=== PATIENT | female | born 1950 | race Caucasian/White ===

== ENCOUNTER 2020-01-28 09:21 | Emergency (ER) | payer MEDICARE, OTHER, SELFPAY ==
[2020-01-28] VITALS (28 sets, daily range): BP systolic 98–155; BP diastolic 71–97; PULSE 63–86; RESP 10–24; TEMP 36.6; O2SAT 93–97
--- NOTE | 2020-01-28 09:15 | RT.EKG_ITS ---
APPROVED REPORT Exam: Resting ECG Patient Location: E HR:72 bpm ECG Measurements Heart Rate 72 AXIS TX 190 P -10 QRSd 87 QRS 33 QT 397 T 26 QTc 435 Conclusion Sinus rhythm...normal P axis, V-rate 60- 99
--- NOTE | 2020-01-28 09:30 | DI.CT_ITS ---
EXAM: CT BRAIN NECK CTA CLINICAL HISTORY: rt facial weakness, posterior rt occipital LEHMAN. TECHNIQUE: Imaging Protocol: Axial CT angiography was performed with multi-slice acquisition and mu lti-planar and/or 3D reconstructions. CONTRAST MATERIAL: Intravenous: Omnipaque 350 Contrast volume:85 cc COMPARISON: No exams were available for comparison FINDINGS: CT Head W/O: Ventricles and Extra axial spaces: Normal in size and morphology for the patient's age. Hemorrhage: None. Cerebral parenchyma: Old right lacunar infarct versus prominent perivascular space. Mild atrophy. Midline shift: None. Brainstem/Cerebellum: Normal. Calvarium: Normal. Visualized Paranasal sinuses/Mastoids: Clear. Soft Tissues: Unremarkable. CTA Brain W: Internal Carotid Arteries: Petrous: Normal. Cavernous: Normal. Cerebral: Normal. Middle Cerebral Arteries: Right: No aneurysm, occlusion or significant stenosis. Left: No aneurysm, occlusion or significant stenosis. Anterior Cerebral Arteries: Right: No aneurysm, occlusion or significant stenosis. Left: No aneurysm, occlusion or significant stenosis. Posterior cerebral Arteries: Right: No aneurysm, occlusion or significant stenosis. Left: No aneurysm, occlusion or significant stenosis. Vertebral Arteries: Right: No aneurysm, occlusion or significant stenosis. Left: No aneurysm, occlusion or significant stenosis. Basilar Artery: No aneurysm, occlusion or significant stenosis. CTA Neck: The vessels are ectatic. There is no evidence of significant stenosis or dissection. Dege nerative changes are noted in the cervical spine. The visualized portions of the upper lobes appear clear. The sinuses and orbits are unremarkable. IMPRESSION: 1. Normal CTA examination of the [place]. 2. Old right lacunar infarct versus prominent perivascular space. RADIATION DOSE DELIVERED: Total DLP DATA REPOSITORY: All CT scans at this facility are submitted to the National Radiology Data Registry (NRDR) Dose Index Registry (DIR) with the [employer] (ACR). RADIATION OPTIMIZATION: All CT scans at this facility use at least one of these dose optimization te chniques: automated exposure control; mA and/or kV adjustment per patient size (includes targeted exa ms where dose is matched to clinical indication); or iterative reconstruction.
--- NOTE | 2020-01-28 09:30 | DI.RAD_ITS ---
EXAM: XR CHEST 2V PA LATERAL CLINICAL HISTORY: rt facial weakness, concern for cva TECHNIQUE: 2D digital imaging was performed. COMPARISON: No exams were available for comparison FINDINGS: The heart size is within normal limits. The aorta is tortuous. There are mildly increased interstit ial markings which could indicate fibrotic changes versus early pulmonary edema. There is no evidenc e of mass or consolidation. There is no pneumothorax. The spine appears intact. IMPRESSION: Mild CHF versus mild fibrotic changes. DATA REPOSITORY: RADIATION DOSE DELIVERED:
--- NOTE | 2020-01-28 09:38 | ED.GENADUL_ITS ---
Discharge Plan Disposition Patient Disposition: [facility] Condition: Serious Discharge Details Clinical Impression: Weakness on right side of face, Abnormality of soft tissue on examination Primary Care Provider: Gemma Herrera ED Provider: Emery Juarez Home Meds and New Rx's Prescriptions: No Action levothyroxine 175 mcg Tablet 175 mcg PO DAILY RF: 0 paroxetine HCl 30 mg Tablet 30 mg PO DAILY RF: 0 hydrochlorothiazide 25 mg Tablet 25 mg PO DAILY RF: 0 propranolol 20 mg Tablet 20 mg PO BID RF: 0 Centrum Women 18-400 mg-mcg Tablet 1 tab PO DAILY RF: 0 [place] RF: 0 Discharge Instructions Additional Instructions: CT imaging of your neck revealed mildly asymmetric parapharyngeal soft tissue calcifications and soft tissue thickening at the left parapharyngeal and tonsillar level. It is recommended that nonemergent evaluation of this soft tissue abnormality be performed by an hearing aid assistant. Please call ENT to arrange timely follow-up. Discharge Data Discharge Date/Time-TO BE ENTERED AT DEPARTURE: 01/28/20 12:41 Medical Decision Making 948??70-year-old female with history of hypertension, here with right-sided facial droop that was noticed upon waking this morning. Last known time without weakness was yesterday 10 PM. Patient did have right occipital headache last night. Headache now resolved. Patient does have significant right-sided facial weakness on exam. She does serial elevate her right eyebrow and forehead slightly. No other focal neurologic findings on exam. Concern for Dunn's palsy versus CVA. Plan to obtain CT of the head and CTA of the brain and neck. Screening ECG was reviewed and interpreted by me: Sinus rhythm 72 bpm, normal axis, nondiagnostic. See report. Will send tick panel. 1038??CT of the head was interpreted by radiology: No acute intracranial abnormality. CTA of the head interpreted by radiology: No large vessel occlusion. CTA of the neck interpreted by radiology: No significant carotid stenosis by NASCET [place] criteria. Ectatic arterial vasculature in the neck without significant james nosis, thrombus or dissection. Vertebral arteries are codominant. Mildly asymmetric parapharyngeal soft tissue calcifications and soft tissue thickening at the left parapharyngeal and tonsillar level should be non-emergently evaluated with direct visualization. We do not have MRI capability at [facility] today or tomorrow. Call to [facility] transfer center to request consultation with neurology. Patient will need nonemergent ENT follow-up direct visualization of incidental finding noted on CT. Chest x-ray was reviewed and interpreted by radiology: Mild pulmonary venous hyp ertension cannot exclude early failure. Patient has no signs of heart failure on exam including no JVD and no lower extremity edema. Troponin is negative. 1115 --I spoke with Dr. Simon, on-call neurology at [facility], discussed ED presentation and course. He feels this is likely Dunn's palsy but does recommend timely MRI. He recommends transferring the patient to be accepted in the [facility] emergency department for evaluation and MRI. Transfer center notes no bed availability in the emergency department. [facility] is not currently on EMS diversion per transfer center. I explained that patient could have an emergent medical condition that we do not have the ability to rule out. This is understood and unfortunately they will not accept the patient in transfer. Plan will be to transfer to another MRI capable center for neurologic evaluation and further assessment of potential emergent medical condition. Call to [facility] transfer center. 11:28 -- I spoke with [facility], Dr. Esteban (neuro) and Dr. Martini (EM) discussed ED presentation and course--Dr. Martini will accept the patient in transfer. Lab Data Lab results reviewed: Yes I reviewed the patient's lab results. Labs: Laboratory Tests Range/Units 01/28/20 01/28/20 01/28/20 09:40 09:40 09:40 WBC (4.4-10.8) 10^3/uL 6.30 RBC (3.93-5.22) 10^6/uL 5.34 H Hgb (11.2-15.7) g/dL 16.0 H Hct (36.0-46.0) % 47.3 H MCV (80-95) fL 88.6 MCH (27.0-33.0) pg 30.0 MCHC (32.0-36.0) % 33.8 RDW (11.7-14.6) % 11.7 Plt Count (130-400) 10^3/uL 280 MPV (8.0-11.0) fL 10.5 Immature Gran % 0.3 Neutrophils % 63.9 Lymphocytes % 24.3 Monocytes % 7.5 Eosinophils % 2.4 Basophils % 1.6 Nucleated RBC % % 0 Absolute Neutrophils (1.2-6.7) 10^3/uL 4.03 Absolute Lymphocytes (1.2-3.4) 10^3/uL 1.53 Absolute Monocytes (0.1-0.8) 10^3/uL 0.47 Absolute Eosinophils (0.0-0.7) 10^3/uL 0.15 Absolute Basophils (0.0-0.2) 10^3/uL 0.10 PT (9.3-11.0) sec 10.1 INR (0.9-1.1) 1.0 Sodium (136-145) mmol/L 142 Potassium (3.5-5.1) mmol/L 3.5 Chloride (98-107) mmol/L 104 Carbon Dioxide (21.0-32.0) mmol/L 31.2 Anion Gap (3-11) mmol/L 6.8 BUN (7-18) mg/dL 13 Creatinine (0.55-1.02) mg/dL 0.84 Estimated GFR/1.73 m2 (mL/min/1.73m2) >= 60.00 Glucose (74-106) mg/dL 112 H Calcium (8.5-10.1) mg/dL 9.5 Total Bilirubin (0.2-1.0) mg/dL 0.6 AST (15-37) U/L 23 ALT (14-59) U/L 32 Alkaline Phosphatase (46-116) U/L 88 Troponin I (<0.06) ng/mL < 0.05 Total Protein (6.4-8.2) g/dL 8.0 Albumin (3.4-5.0) g/dL 3.9 TSH (0.36-3.74) uIU/mL Range/Units 01/28/20 09:40 WBC (4.4-10.8) 10^3/uL RBC (3.93-5.22) 10^6/uL Hgb (11.2-15.7) g/dL Hct (36.0-46.0) % MCV (80-95) fL MCH (27.0-33.0) pg MCHC (32.0-36.0) % RDW (11.7-14.6) % Plt Count (130-400) 10^3/uL MPV (8.0-11.0) fL Immature Gran % Neutrophils % Lymphocytes % Monocytes % Eosinophils % Basophils % Nucleated RBC % % Absolute Neutrophils (1.2-6.7) 10^3/uL Absolute Lymphocytes (1.2-3.4) 10^3/uL Absolute Monocytes (0.1-0.8) 10^3/uL Absolute Eosinophils (0.0-0.7) 10^3/uL Absolute Basophils (0.0-0.2) 10^3/uL PT (9.3-11.0) sec INR (0.9-1.1) Sodium (136-145) mmol/L Potassium (3.5-5.1) mmol/L Chloride (98-107) mmol/L Carbon Dioxide (21.0-32.0) mmol/L Anion Gap (3-11) mmol/L BUN (7-18) mg/dL Creatinine (0.55-1.02) mg/dL Estimated GFR/1.73 m2 (mL/min/1.73m2) Glucose (74-106) mg/dL Calcium (8.5-10.1) mg/dL Total Bilirubin (0.2-1.0) mg/dL AST (15-37) U/L ALT (14-59) U/L Alkaline Phosphatase (46-116) U/L Troponin I (<0.06) ng/mL Total Protein (6.4-8.2) g/dL Albumin (3.4-5.0) g/dL TSH (0.36-3.74) uIU/mL 1.98 HPI General Mode of arrival: ambulatory . Date/Time Provider Initiated Documentation: 01/28/20 09:33 . Limitations to Documentation: no limitations . Information obtained by: patient . HPI Narrative: 70-year-old female presents with chief complaint of facial weakness. Patient notes right-sided facial droop and weakness when she was drinking some water this morning upon waking around 830. Patient notes she had no facial weakness last night when she went to bed around 10. Patient did have a moderate to severe right-sided occipital headache last night. She notes this headache has resolved. No ear pain. No numbness or weakness. No visual changes. No fevers. No neck stiffness. Related Data Home Medications Medication Instructions Recorded Confirmed Socrates 09/06/20 hydrochlorothiazide 25 mg PO DAILY 01/28/20 01/28/20 levothyroxine 175 mcg PO DAILY 01/28/20 01/28/20 wekbhsisaixa-[id number]-buvvn acid 1 tab PO DAILY 01/28/20 01/28/20 [Centrum Women] paroxetine HCl 30 mg PO DAILY 01/28/20 01/28/20 propranolol 20 mg PO BID 01/28/20 01/28/20 Allergies Allergy/AdvReac Type Severity Reaction Status Date / Time No Known Allergies Allergy Unverified 01/28/20 09:35 General Stated Complaint: CVA/TIA ENE: 2 Review of Systems All systems reviewed & are unremarkable except as noted in HPI and below Constitutional Constitutional: Denies fever(s) Respiratory Respiratory: Denies as per HPI Neurologic Neurologic: Reports as per HPI [facility] Medical History (Updated 01/28/20 @ 10:44 by Emery Juarez MD) Hypertension Hypothyroid Social History Smoking/Tobacco Use Status: Never Alcohol Intake: current Alcohol Intake frequency: holidays/special occasions only Substance use type: does not use Do you feel safe at home: Yes Do you feel safe in your relationship?: Yes Exam Const General: cooperative and no acute distress HENMT Head: normocephalic and atraumatic Ears: TM normal on the right and TM normal on the left Mouth: moist mucous membranes Eyes Conjunctivae: normal conjunctivae Sclera: normal sclerae Neck Neck: trachea midline and supple Resp Auscultation: clear to auscultation bilaterally, no rales, no rhonchi and no wheezes Cardio Jugular venous pressure: no JVD Rate: regular rate and not tachycardic Rhythm: regular rhythm GI Palpation: soft, not firm, no guarding, no masses, not rigid and nontender Skin General skin exam: no rashes or lesions noted Neuro General: patient alert, patient awake, patient oriented x3 and tone normal Cranial Nerves: sense of smell intact, PERRL, accommodation normal, EOM intact bilaterally, no nystagmus and other (Right facial droop, is able to wrinkle forehead/raise eyebrows slightly on ) Cognition: normal cognition Speech: speech normal Motor: muscle tone normal throughout and strength 5/5 throughout Sensory Exam: no sensory deficits noted Extrem General: no edema Psych Appearance: grossly normal Mental Status: mental status grossly normal Speech and Movement: speech and movement normal Course Vital Signs Vital signs: Vital Signs Temperature 36.6 C 01/28/20 09:30 Pulse 86 01/28/20 09:30 Respiratory Rate 18 01/28/20 09:30 Blood Pressure 155/97 H 01/28/20 09:30 Pulse Oximetry 95 01/28/20 09:30 Temperature 36.6 C 01/28/20 09:30 Temperature Source Skin 01/28/20 09:30 Pulse 86 01/28/20 09:30 Respiratory Rate 18 01/28/20 09:30 Respiratory Effort 01/28/20 09:36 Blood Pressure 155/97 H 01/28/20 09:30 Blood Pressure Position Supine 01/28/20 09:30 Pulse Oximetry 95 01/28/20 09:30 Oxygen Delivery Method Room Air 01/28/20 09:30 Oxygen Flow Rate 0 01/28/20 09:30 Pain Level 0 01/28/20 09:30
[2020-01-28 09:46] LABS: Abs Immature Grans 0.02 10^3/uL (0.0-0.06); Absolute Eosinophil Count 0.15 10^3/uL (0.0-0.7); Absolute Lymphocyte Count 1.53 10^3/uL (1.2-3.4); Absolute Monocyte Count 0.47 10^3/uL (0.1-0.8); Absolute Neutrophil Count 4.03 10^3/uL (1.2-6.7); Basophils % 1.6; Eosinophils % 2.4; HCT 47.3 % (36.0-46.0); Immature Grans % 0.3; Lymphocytes % 24.3; MCHC 33.8 % (32.0-36.0); MCV 88.6 fL (80-95); MPV 10.5 fL (8.0-11.0); Monocytes % 7.5; Neutrophils % 63.9; Nucleated RBC 0 %; Platelet Count 280 10^3/uL (130-400); RBC 5.34 10^6/uL (3.93-5.22); RDW 11.7 % (11.7-14.6); RDW-SD 37.3 fL
[2020-01-28] MEDS: Normal Saline Flush 10 ML SYR IVP (09:46)
[2020-01-28] MEDS: Omnipaque 350 MG/ML 100 ML BTL 85 ML IJ (09:48)
[2020-01-28 09:56] LABS: Prothrombin Time 10.1 sec (9.3-11.0)
[2020-01-28 10:04] LABS: ALT 32 U/L (14-59); AST 23 U/L (15-37); Albumin 3.9 g/dL (3.4-5.0); Alkaline Phosphatase 88 U/L (46-116); Anion Gap 6.8 mmol/L (3-11); BUN 13 mg/dL (7-18); Bilirubin, Total 0.6 mg/dL (0.2-1.0); CO2 31.2 mmol/L (21.0-32.0); CREATININE 0.84 mg/dL (0.55-1.02); Calcium 9.5 mg/dL (8.5-10.1); Chloride 104 mmol/L (98-107); Glucose 112 mg/dL (74-106); Potassium 3.5 mmol/L (3.5-5.1); Sodium 142 mmol/L (136-145); Troponin I < 0.05 ng/mL (<0.06)
--- NOTE | 2020-01-28 10:07 | DI.VRAD_ITS ---
PROCEDURE INFORMATION: Exam: XR Chest, 2 Views Exam date and time: 01/28/2020 9:56 AM Age: 70 years old Clinical indication: Other: RT facial weakness, concern for CVA; Additional info: RT faciasl weakness, posterior RT occipital LEHMAN TECHNIQUE: Imaging protocol: XR of the chest Views: 2 views. COMPARISON: No relevant prior studies available. FINDINGS: Lungs: The lungs are well expanded and clear. Mild pulmonary venous hypertension. Pleural space: Unremarkable. No pleural effusion. No pneumothorax. Heart/Mediastinum: Heart Size upper limits of normal . Vasculature: tortuous aorta. Bones/joints: Unremarkable. IMPRESSION: Mild pulmonary venous hypertension cannot exclude early failure. Dictated and Authenticated by: Kellie Macario MD. Ordering:JAMES Land MD
[2020-01-28 10:09] LABS: TSH (W/Ref FT4) 1.98 uIU/mL (0.36-3.74)
--- NOTE | 2020-01-28 10:25 | DI.VRAD_ITS ---
PROCEDURE INFORMATION: Exam: CT Angiography Head With Contrast Exam date and time: 01/28/2020 9:37 AM Age: 70 years old Clinical indication: Other: RT faciasl weakness, posterior RT occipital LEHMAN TECHNIQUE: Imaging protocol: Computed tomography angiography of the head with intravenous contrast. COMPARISON: No relevant prior studies available. FINDINGS: Arteries: Ectasia of the arterial tree the qoziai-md-Kmiqal without high-grade stenosis, thrombus, or aneurysm. Veins: Venous contamination without venous thrombus. Mastoid air cells: The mastoids are well aerated. Orbits: The orbits look intact. Bones/joints: Hyperostosis of the calvarium without acute fracture. Lymph nodes: No visualized lymphadenopathy. Soft tissues: The paranasal sinuses are well aerated. IMPRESSION: No large vessel occlusion. PROCEDURE INFORMATION: Exam: CT Head Without Contrast Exam date and time: 01/28/2020 9:37 AM Age: 70 years old Clinical indication: Other: RT faciasl weakness, posterior RT occipital LEHMAN TECHNIQUE: Imaging protocol: Computed tomography of the head without contrast. Radiation optimization: All CT scans at this facility use at least one of these dose optimization techniques: automated exposure control; mA and/or kV adjustment per patient size (includes targeted exams where dose is matched to clinical indication); or iterative reconstruction. Other technique: STROKE PROTOCOL was implemented. COMPARISON: No relevant prior studies available. FINDINGS: Brain: No acute hemorrhage or acute territorial infarct. Moderate diffuse involutional changes in the brain. Vascular calcifications are approaching the [id number]-hr-Bjhcvf. Old lacune versus dilated perivascular space on right. Ventricles: Normal. No ventriculomegaly. Bones/joints: Mild hyperostosis of the calvarium without acute fracture. Sinuses: Visualized sinuses are unremarkable. No fluid levels. Mastoid air cells: Visualized mastoid air cells are well aerated. Soft tissues: Unremarkable. IMPRESSION: No acute intracranial abnormality ASSESSMENT: ASPECTS (Tanisha Stroke Program Early CT Score) is 10. PROCEDURE INFORMATION: Exam: CT Angiography Neck With Contrast Exam date and time: 01/28/2020 9:37 AM Age: 70 years old Clinical indication: Other: RT faciasl weakness, posterior RT occipital LEHMAN TECHNIQUE: Imaging protocol: Computed tomography angiography of the neck with intravenous contrast. 3D rendering (Not supervised by radiologist): MIP and/or 3D reconstructed images were created by the technologist. Radiation optimization: All CT scans at this facility use at least one of these dose optimization techniques: automated exposure control; mA and/or kV adjustment per patient size (includes targeted exams where dose is matched to clinical indication); or iterative reconstruction. Contrast material: OMNIPAQUE 350; Contrast volume: 85 ml; Contrast route: INTRAVENOUS (IV); COMPARISON: No relevant prior studies available. FINDINGS: Arteries: Ectatic arterial vasculature in the neck without significant stenosis, thrombus, or dissection. The vertebral arteries are codominant. Oropharynx: Mildly asymmetric parapharyngeal soft tissue calcifications and soft tissue thickening at the left parapharyngeal and tonsillar level should be non emergently evaluated with direct visualization. Thyroid: Thyroid is diminutive. Dental: There are carious teeth in the field of view. Bones/joints: Degenerative changes along the spine with reversal of the lordosis. The apex is at C5-C6. Soft tissues: No dominant neck mass. Lymph nodes: Small neck nodes without confluent lymphadenopathy. Lungs: Heterogeneous aeration of the included lungs. Esophagus: Mildly patulous esophagus. IMPRESSION: 1. No significant carotid stenosis by NASCET criteria. 2. Other findings as above. REFERENCES: NASCET CRITERIA. The degree of internal carotid artery stenosis is based on NASCET criteria. Normal is no stenosis. Mild is less than 50% stenosis. Moderate is 50-69% stenosis. Severe is 70% to 99% stenosis. Total occlusion is no detectable patent lumen. Dictated and Authenticated by: Caleb Reeves MD. Ordering:JAMES Land MD
[2020-01-28] MEDS: Aspirin 325 MG TAB PO ×2 (11:00)
[2020-01-31 10:59] LABS: Lyme Ab w Rflx to Lyme Confirm Negative (Negative)
--- NOTE | 2020-01-31 16:52 | NUR.NOTE ---
Nursing Note: Patient called requesting that the visit information be faxed to her PCP, Mita Sultana. I faxed the information. Mónica Leung P [phone] F [phone]
[2020-02-01 00:57] LABS: Anaplasma phagocytophilum Negative (Negative); B. miyamotoi PCR Negative (Negative); Babesia divergens/MO-1 Negative (Negative); Babesia duncani Negative (Negative); Babesia microti Negative (Negative); Ehrlichia chaffeensis Negative (Negative); Ehrlichia ewingii/canis Negative (Negative); Ehrlichia muris eauclairensis Negative (Negative)
== END 2020-01-28 12:41 | disposition short-term general hospital (02) ==
PROVIDERS: Emergency Provider Student in an Organized Health Care Education/Training Program; PCP Legal Medicine
DX: R29.810 Facial weakness (principal); R93.89 Abnormal findings on diagnostic imaging of other specified body structures; I10 Essential (primary) hypertension
CPT/HCPCS: 36416; 70496; 70498; 80053; 82962; 87798; 93005; 99285; 71046; 84443; 84484; 85025; 85610; 86618; 93010; J3490

== ENCOUNTER 2021-04-29 18:42 | Outpatient (REF) | payer MEDICARE, SELFPAY ==
[2021-04-29 17:43] LABS: ALT 28 U/L (14-59); AST 21 U/L (15-37); Alkaline Phosphatase 91 U/L (46-116); Anion Gap 6.2 mmol/L (3-11); BUN 15 mg/dL (7-18); Bilirubin, Total 0.7 mg/dL (0.2-1.0); CO2 31.8 mmol/L (21.0-32.0); CREATININE 0.8 mg/dL (0.55-1.02); Calcium 9.5 mg/dL (8.5-10.1); Chloride 104 mmol/L (98-107); Glucose 110 mg/dL (74-106); Potassium 3.7 mmol/L (3.5-5.1); Sodium 142 mmol/L (136-145); TSH (W/Ref FT4) 0.89 uIU/mL (0.36-3.74); Total Protein 7.1 g/dL (6.4-8.2)
== END 2021-04-29 18:43 | disposition home or self-care (01) ==
LOC: LBN 18:42
DX: I10 Essential (primary) hypertension (principal); E05.90 Thyrotoxicosis, unspecified without thyrotoxic crisis or storm; Z00.00 Encounter for general adult medical examination without abnormal findings
CPT/HCPCS: 80053; 84443

== ENCOUNTER 2021-05-29 03:18 | Outpatient (CLI) | payer MEDICARE, SELFPAY ==
--- NOTE | 2021-05-29 07:15 | DI.MAMMO_ITS ---
Exam(s) MAMMO SCREENING EXAM: MAMMO SCREENING CLINICAL HISTORY: screening,Z12.39 TECHNIQUE: Bilateral full field digital CC and MLO mammographic images were obtained with 3D tomosyn thesis and utilizing computer aided detection (CAD). COMPARISON: Available for comparison. FINDINGS: Masses/Architectural Distortion: None seen. Microcalcifications: No suspicious pleomorphic-type are seen. Skin Thickening/Nipple Retraction: None. IMPRESSION: 1. No significant interval change with no specific features of malignancy noted. 2. Unless there is more urgent need, screening mammography is recommended, as per [employer] guidelines. BI-RADS Category 1 - Negative Breast Density - Category B - Scattered areas of fibroglandular density Breast density category C or D implies that the patient has dense breast tissue. Dense breast tissue is very common and is not abnormal but dense breast tissue can make it harder to find cancer on a ma mmogram. Also, dense breast tissue may increase their breast cancer risk. This information about the result of the mammogram report was provided to the patient to raise their awareness. Use this report when you speak with the patient about their risks for breast cancer, which includes their family hist ory. At that time, you may recommend for more screening tests (Ultrasound or MRI) as they might be us eful based on their risk. A negative radiographic report should not delay biopsy if a dominant or clinically suspicious mass is present. Up to ten percent of cancers are not identified on mammography. A negative report may reinforce clinical impression. Adenosis and dense breasts may obscure an underlying neoplasm. False positive reports average 6 to 10%. Patient will receive a letter notifying them of these results.
== END 2021-05-29 03:38 ==
DX: Z12.31 Encounter for screening mammogram for malignant neoplasm of breast (principal)
CPT/HCPCS: 77063; 77067

== ENCOUNTER → 2022-01-08 09:00 | Outpatient (BNVA) | payer MEDICARE, SELFPAY | PROVIDERS: Visit Provider Surgery | DX: Z12.11 Encounter for screening for malignant neoplasm of colon (principal) | CPT/HCPCS: 99242 ==

== ENCOUNTER 2022-01-23 07:45 | Day surgery (SDC) | payer MEDICARE, SELFPAY ==
--- NOTE | 2022-01-22 22:59 | W.COLOREPORT ---
Colonoscopy Report Date of procedure: 01/23/22 Pre-op diagnosis general: Colon cancer screening today Post-op diagnosis procedure note: other (Small polyps x1) Surgeon: Madie Benites Anesthesia Type: General:No Airway Estimated blood loss (mL): 1 Pathology: other Complications: None Disposition: same day Prep: Miralax/Dulcolax Retraction Time: 9 Procedure Description: After informed consent was obtained the patient was taken to the procedure room and placed in a left decubitous position. Monitors were applied and a time out was done. The patients name, date of , procedure, allergies to medications and metal in their body was reviewed. The patient was then sedated. Once sedated and comfortable a rectal exam was done. External exam: Minor external hemorrhoids. Internal exam revealed a normal sphincter tone and no palpable masses. The scope was then introduced and retrofelexed. No without internal hemorrhoids were identified. The scope was then advanced to the cecum difficulty. The TI and appendiceal orifice were identified. The prep was BB PS 3 in all segments for a total of 9. The scope was then slowly retracted over 9 minutes back into the rectum. She had a small flat 5mm polyp at 70 cm. This is removed with a cold biting forcep. All specimen is retrieved and no bleeding is noted. There are no diverticula visualized today. The mucosa appears pink and healthy with a normal vascular pattern the scope was removed and the patient was woken up and taken back to Same day surgery in stable condition. The patient tolerated the procedure well and there were no immediate complications. Follow up: The patient should follow up in 7 years unless they develop changes in bowel habits or other new gastrointestinal complaints.
--- NOTE | 2022-01-22 23:00 | PDOC.DSDIS_ITS ---
Discharge Plan Disposition Patient Disposition: HOME Condition: Good Discharge Details Reason For Visit: Colon cancer screening Attending Provider: Madie Benites Primary Care Provider: Ladan Castellanos Home Meds and New Rx's Prescriptions: Continued cyanocobalamin (vitamin B-12) 1,000 mcg capsule 1,000 mcg PO DAILY omega-3 fatty acids [Fish Oil Concentrate] 1,000 mg capsule 1,000 mg PO DAILY hydrochlorothiazide 25 mg tablet 25 mg PO DAILY Qty: 90 3RF propranolol 20 mg tablet 20 mg PO BID Qty: 180 3RF levothyroxine [Euthyrox] 175 mcg tablet 175 mcg PO DAILY Qty: 90 0RF fluoxetine 20 mg capsule 20 mg PO DAILY Qty: 90 3RF amlodipine 5 mg tablet 5 mg PO DAILY Qty: 90 3RF cholecalciferol (vitamin D3) 50 mcg (2,000 unit) capsule 50 mcg PO DAILY Centrum Women 18-400 mg-mcg Tablet 1 tab PO DAILY Discontinued polyethylene glycol 3350 17 gram/dose powder 238 g PO ONCE Qty: 238 0RF Rx Instructions: take per colonoscopy instructions bisacodyl [Dulcolax (bisacodyl)] 5 mg tablet,delayed release (DR/EC) 5 mg PO ONCE Qty: 4 0RF Rx Instructions: take per colonoscopy instructions Discharge Instructions Additional Instructions: [facility] Colonoscopy Post- Op Instructions Instructions for Everyone who is given Anesthesia: For your safety, please do the following for the next twenty-four (24) hours: *Do Not operate a motor vehicle (car, truck, motorcycle, etc.) *Do Not drink alcoholic beverages or use any recreational drugs for the first 24 hours or while taking pain medications. The medications in your body may have a reaction that can be dangerous. *Do Not make any important decisions or sign any important papers. Findings: x1 small polyp Follow up: My office will send a letter in 2 to 3 weeks time with the results of the pathology, and and when we want you to repeat the colonoscopy, most likely 7 years time. 1. No lifting over 20 pounds or strenuous activity for the first 24 hours after your procedure. After 24 hours there are no restrictions on your activity but you may feel fatigued for a few days. 2. After you arrive home you may have a light meal and return to your normal diet as you can tolerate it without feeling sick to your stomach. 3. You may have a bloated, gaseous feeling in your belly (abdomen) after a colonoscopy. Passing gas and belching will help. Walking or lying down on your left side with your knees flexed may relieve the discomfort. Call the office at [phone] (Office) or [phone] (Hospital) right away if you notice any of the following: a.Vomiting of blood or ?coffee ground stools?. b.Rectal bleeding 1Tbsp, blood clots or continuous bleeding. c.Severe belly (abdominal) pain. d.A hard distended belly (abdomen) and an inability to pass gas. 4. Please don?t expect to have a normal BM (bowel movement) for 2-3 days after your procedure. 5. If there are questions regarding the findings of your procedure, please contact your doctor 6. If you are unable to contact your doctor with a problem, contact the hospital at [phone]. 7. Continue all your regular medications unless directed otherwise. I understand the above instructions and have no questions. Signature of Patient or Adult Escort Name of Responsible Adult Escort Signature of Nurse Date/Time Activity:: see above Diet:: See above
[2022-01-23 08:14] VITALS: BP 147/86; PULSE 71; RESP 16; TEMP 36.7; O2SAT 95
[2022-01-23] MEDS: Lactated Ringers 1,000 ML 80 ML IV (08:46)
--- NOTE | 2022-01-23 08:48 | W.ANESPRE ---
General Info Date of Service Date Performed: 01/23/22 Height: 4 ft 11 in Weight: 75.4 kg Body Mass Index (BMI): 33.5 Surgical Procedure: Operation Date: 01/23/22 09:05 Proposed Procedure Side Surgeon jazmín Benites, DO Meds Allergies and Home Medications Allergies Allergy/AdvReac Type Severity Reaction Status Date / Time naproxen Allergy Severe Anaphylaxis Verified 01/23/22 08:11 Home Medication Medication Instructions Recorded multivitamin-ferrous 1 tab PO DAILY 01/28/20 fumarate-folic acid 18 mg-400 mcg tablet (Centrum Women) cholecalciferol (vitamin D3) 50 50 mcg PO DAILY 03/18/21 mcg (2,000 unit) capsule cyanocobalamin (vitamin B-12) 1,000 mcg PO DAILY 04/22/21 1,000 mcg capsule hydrochlorothiazide 25 mg tablet 25 mg PO DAILY #90 tabs 04/22/21 omega-3 fatty acids 1,000 mg 1,000 mg PO DAILY 04/22/21 capsule (Fish Oil Concentrate) propranolol 20 mg tablet 20 mg PO BID #180 tabs 04/22/21 levothyroxine 175 mcg tablet 175 mcg PO DAILY #90 tabs 05/06/21 (Euthyrox) amlodipine 5 mg tablet 5 mg PO DAILY #90 tabs 10/21/21 fluoxetine 20 mg capsule 20 mg PO DAILY #90 caps 10/21/21 Current Visit Medications: Current Medications Generic Name Dose Route Start Last Admin Trade Name Freq PRN Reason Stop Dose Admin Ringer's Solution 1,000 mls @ 80 mls/hr 01/23/22 06:00 01/23/22 08:46 IV 01/23/22 23:59 80 mls/hr INFUSION MANUELA Administration IV Miscellaneous Supplies 1 each 01/23/22 06:00 Iv Access IV 01/23/22 23:59 DIRECTED MANUELA Sodium Chloride 0 ml 01/23/22 06:00 Normal Saline Flush 10 Ml Syr IV 01/23/22 23:59 PRN PRN Sodium Chloride 0 ml 01/23/22 06:00 Normal Saline 10 Ml Vial IJ 01/23/22 23:59 DIRECTED PRN Sterile Water 0 ml 01/23/22 06:00 Water,Injection,Sterile 10 Ml Vial IJ 01/23/22 23:59 DIRECTED PRN PFSH Active Problems Active Problems: Problem Status Onset Code Obesity (BMI 30-39.9) E66.9 Memory changes R41.3 Back pain of lumbosacral region with sciatica M54.40 Hyperthyroidism E05.90 Depression F32.A Somnolence R40.0 Essential (primary) hypertension I10 Migraine without aura, not intractable, with status migrainosus G43.001 Dysthymic disorder F34.1 Mixed hyperlipidemia E78.2 Vitamin D deficiency, unspecified E55.9 Medical History Medical History Hypothyroid Surgical History Surgical History H/O section H/O total hysterectomy with bilateral salpingo-oophorectomy (BSO) (~2001) History of appendectomy History of cholecystectomy History of surgical procedure foot bone spur Tobacco Smoking/Tobacco Use Status: Never Passive smoking exposure: Yes Second hand exposure: Yes Alcohol Alcohol Intake: current Alcohol intake frequency: holidays/special occasions only Alcohol type: wine Substance Use Substance use: Never Substance use type: does not use Vital Signs and Lab Results Vital Signs Most Recent Vital Signs in EMR: Most Recent Vital Signs Temp Pulse Resp BP Pulse Ox 36.7 C 71 16 147/86 H 95 01/23/22 08:14 01/23/22 08:14 01/23/22 08:14 01/23/22 08:14 01/23/22 08:14 Lab Results Blood Type / Crossmatch: No Data to Display Complete Blood Count: No Data to Display Complete Metabolic Panel: No Data to Display Liver Function Panel: No Data to Display Coagulation Panel: No Data to Display Cardiac Panel: No Data to Display Arterial Blood Gas: No Data to Display Venous Blood Gas: No Data to Display Pancreas Panel: No Data to Display Thyroid Panel: No Data to Display Infectious Disease: No Data to Display Blood Cultures: No Data to Display Toxicology Panel: No Data to Display Anesthesia Assessment and Plan Anesthesia History Personal History: No History of Anesthesia Complications Family History: No Family History of Anesthesia Complications Exercise Tolerance Exercise Tolerance: Metabolic Equivalents>4 Pertinent Negatives Pertinent Negatives: No Symptoms of GERD, No Major Cardiovascular Symptoms or Complaints and No Major Pulmonary Symptoms or Complaints Cardiac & Pulmonary Exam Cardiac Exam: Normal S1/S2 Heart Sounds Pulmonary Exam: Clear Bilateral Breath Sounds Implantable Cardiac Device Does patient have a Pacemaker or an ICD?: No Airway Exam Known Difficult Airway: No Mallampati Class: 1 Mouth Opening: Narrow (< 3cm) Thyromental Distance: Greater than 3 cm Neck Range of Motion: Full ROM Neck Circumference: Normal Teeth Condition: Generalized Poor Dentition ASA Classification ASA Score: ASA 2 Emergency Case?: No NPO Status NPO Status: NPO Clears >2 hours, Solids >8 hours Anesthesia Plan Resuscitation Status: Full Code Anesthesia Technique: General Anesthesia Airway Planned: Natural Airway Monitors Used: Standard Monitors
[2022-01-23 08:51] VITALS: BMI 33.5
--- NOTE | 2022-01-23 09:16 | BOWEL_PTH ---
PATIENT: Essie Wagner LOC: [facility] U#:[id number] AGE/SX: 72/F ROOM: RE01/23/[address]: Madie Benites : 1950 BED: DIS: 01/23/2022 SPEC #: [id number] RECD: 01/23/22 12:48 STATUS: JOSE JUAN REQ #: [id number] [place]: 01/23/22 09:[address]: Madie Benites DEPT: Surgical Specimen RECD BY: Gricelda Celaya ENTERED: 01/23/22 12:48 SP TYPE: Bowel OTHR DR: Ladan Castellanos APRN Tissues: 1 - BIOPSY BOWEL Procedures: GROSS AND MICRO LEVEL 4 Comments: [id number]
[2022-01-23 09:36] VITALS: BP 102/50; PULSE 68; RESP 20; TEMP 36.6; O2SAT 92
[2022-01-23 10:03] VITALS: BP 118/73; PULSE 68; RESP 16; TEMP 36.4; O2SAT 93
--- NOTE | 2022-01-23 10:22 | W.ANESPOSTOP ---
Postoperative Evaluation Date, Time and Location Date Performed: 01/23/22 Time Performed: 10:10 Patient Location: Day Surgery Unit Vital Signs Most Recent Imported Vital Signs: Most Recent Vital Signs Temp Pulse Resp BP Pulse Ox 36.4 C L 68 16 118/73 93 01/23/22 10:03 01/23/22 10:03 01/23/22 10:03 01/23/22 10:03 01/23/22 10:03 Pain Score Most Recent Pain Score: Most Recent Pain Score Pain Level 0 01/23/22 10:03 Assessment Mental Status: Awake (Alert & Oriented to Patient Baseline) Airway and Respiratory Function: Patent airway with normal (patient baseline) respiratory exam Cardiovascular Function: Hemodynamically Stable Hydration Status: Adequately Hydrated Nausea & Vomiting: No Nausea or Vomiting Pain: Pt. Denies Any Pain Peripheral Nerve Block: Patient did not receive a nerve block
== END 2022-01-23 10:20 | disposition home or self-care (01) ==
PROVIDERS: Visit Provider Surgery
PROC: 0DJD8ZZ Inspection of Lower Intestinal Tract, Via Natural or Artificial Opening Endoscopic (ICD-10-PCS; CPT 45378; principal; 2022-01-23 09:00)
DX: Z12.11 Encounter for screening for malignant neoplasm of colon (principal); K63.5 Polyp of colon; I10 Essential (primary) hypertension; E78.2 Mixed hyperlipidemia
CPT/HCPCS: 45380; 88305; J2405

== ENCOUNTER 2022-06-25 04:24 | Outpatient (CLI) | payer MEDICARE, SELFPAY ==
[2022-06-25 13:20] LABS: ALT 23 U/L (14-59); AST 22 U/L (15-37); Albumin 3.7 g/dL (3.4-5.0); Alkaline Phosphatase 92 U/L (46-116); BUN 16 mg/dL (7-18); Bilirubin, Total 0.6 mg/dL (0.2-1.0); CREATININE 0.8 mg/dL (0.55-1.02); Calcium 9.7 mg/dL (8.5-10.1); Chloride 104 mmol/L (98-107); Estimated GFR 79.22 (mL/min/1.73m2); Glucose 133 mg/dL (74-106); Potassium 3.7 mmol/L (3.5-5.1); Sodium 143 mmol/L (136-145); Total Protein 7.3 g/dL (6.4-8.2)
== END 2022-06-25 04:25 | disposition home or self-care (01) ==
LOC: LOS 04:24
PROVIDERS: PCP Nurse Practitioner Family; Visit Provider Nurse Practitioner Family
DX: E05.90 Thyrotoxicosis, unspecified without thyrotoxic crisis or storm (principal); E66.9 Obesity, unspecified; I10 Essential (primary) hypertension
CPT/HCPCS: 36415; 80053; 84439; 84443

== ENCOUNTER 2022-08-28 02:09 | Outpatient (CLI) | payer MEDICARE, SELFPAY ==
[2022-08-28 12:32] LABS: TSH (W/Ref FT4) 0.32 uIU/mL (0.36-3.74)
== END 2022-08-28 02:10 | disposition home or self-care (01) ==
LOC: LOS 02:09
PROVIDERS: PCP Nurse Practitioner Family; Visit Provider Nurse Practitioner Family
DX: E05.90 Thyrotoxicosis, unspecified without thyrotoxic crisis or storm (principal)
CPT/HCPCS: 36415; 84439; 84443

== ENCOUNTER → 2023-01-20 13:22 | Outpatient (BNVA) | payer MEDICARE, SELFPAY | PROVIDERS: PCP Nurse Practitioner Family; Referring Provider Nurse Practitioner Family; Visit Provider Nurse Practitioner Adult Health | DX: R41.3 Other amnesia (principal); F32.A Depression, unspecified; I10 Essential (primary) hypertension | CPT/HCPCS: 99204; 99215 ==

== ENCOUNTER → 2023-02-17 01:20 | Outpatient (CLI) | payer MEDICARE, SELFPAY ==
--- NOTE | 2023-02-17 08:00 | DI.MRI_ITS ---
Exam(s) MR BRAIN WO EXAM: MR BRAIN WO CLINICAL HISTORY: cognitive changes,memory changes, r41.3 TECHNIQUE: Multiplanar multisequence MRI of the brain was performed. COMPARISON: CT CT BRAIN NECK CTA from 01/28/2020 FINDINGS: The examination is limited due to patient motion artifact. VENTRICLES AND EXTRA AXIAL SPACES: Normal in size and morphology for the patient's age. MIDLINE SHIFT: None. CEREBRAL PARENCHYMA: No focus of restricted diffusion to suggest acute infarct. No space-occupying le paul identified. 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 There are few scattered foci of hyperintense signal seen in the white matter on the FLAIR and T2 weighted images most consis tent with small vessel ischemic disease. HEMORRHAGE: None. BRAINSTEM/CEREBELLUM: Normal. CALVARIUM: Normal. VISUALIZED PARANASAL SINUSES/MASTOIDS:There is mucosal thickening in the left maxillary sinus. COLD [place]: Normal flow void. PITUITARY GLAND: Unremarkable. OTHER FINDINGS: None. IMPRESSION: 1. Age-appropriate cerebral atrophy and small vessel ischemic disease. 2. No evidence of an acute territorial infarct. 3. Mild left sinusitis. DATA REPOSITORY:
== END ==
PROVIDERS: PCP Nurse Practitioner Family; Visit Provider Nurse Practitioner Adult Health
DX: R41.3 Other amnesia (principal)
CPT/HCPCS: 70551

== ENCOUNTER 2023-02-22 04:14 | Outpatient (CLI) | payer MEDICARE, SELFPAY ==
[2023-02-22 15:17] LABS: Vitamin B12 1088 pg/mL (193-986)
== END 2023-02-22 04:15 | disposition home or self-care (01) ==
LOC: LBO 04:14
PROVIDERS: PCP Nurse Practitioner Family; Visit Provider Nurse Practitioner Adult Health
DX: R41.3 Other amnesia (principal); I10 Essential (primary) hypertension; E03.9 Hypothyroidism, unspecified; F32.89 Other specified depressive episodes
CPT/HCPCS: 36415; 82607

== ENCOUNTER → 2023-03-03 10:25 | Outpatient (BNVA) | payer MEDICARE, SELFPAY | PROVIDERS: PCP Nurse Practitioner Family; Referring Provider Nurse Practitioner Family; Visit Provider Nurse Practitioner Adult Health | DX: R41.3 Other amnesia (principal); F32.A Depression, unspecified | CPT/HCPCS: 99213; 99214 ==

== ENCOUNTER 2023-03-24 10:32 | Outpatient (CLI) | payer MEDICARE, SELFPAY ==
[2023-03-24 13:18] LABS: D-Dimer 655 ng/mlFEU (<500)
== END 2023-03-24 10:33 | disposition home or self-care (01) ==
LOC: LOS 10:33
PROVIDERS: PCP Nurse Practitioner Family; Referring Provider Nurse Practitioner Family; Visit Provider Nurse Practitioner Family
DX: M79.605 Pain in left leg (principal)
CPT/HCPCS: 36415; 85379

== ENCOUNTER → 2023-06-28 04:35 | Outpatient (CLI) | payer MEDICARE, SELFPAY ==
--- NOTE | 2023-06-28 07:30 | DI.MAMMO_ITS ---
Exam(s) MAMMO SCREENING EXAM: MAMMO SCREENING CLINICAL HISTORY: screening,z12.39. TECHNIQUE: Bilateral full field digital CC and MLO mammographic images were obtained with 3D tomosyn thesis and utilizing computer aided detection (CAD). COMPARISON: Prior mammograms were reviewed. FINDINGS: There has been no significant change in the appearance and distribution of the fibroglandular tissue. Small nodular density located inferiorly in the right breast is unchanged from prior mammograms. There are no new spiculated masses nor malignant appearing microcalcification groups. There is no significant architectural distortion nor skin thickening-retraction. IMPRESSION: Stable benign findings. No radiographic evidence of malignancy. BI-RADS Category 2 - Benign Findings Breast Density - Category B - Scattered areas of fibroglandular density Breast density Category C or D implies that the patient has dense breast tissue. Dense breast tissue can make it harder to find cancer on a mammogram. Dense breast tissue is also associated with an incr eased risk of breast cancer. This information about the result of the mammogram report was provided to the patient to raise their awareness. Use this report when you speak with the patient about their risks for breast cancer, which includes their family history. At that time, you may recommend additional screening tests (Ultrasoun d or MRI) as these tests may add significant information. A negative radiographic report should not delay biopsy if a dominant or clinically suspicious mass is present. Up to ten percent of cancers are not identified on mammography. A negative report may reinforce clinical impression. Adenosis and dense breasts may obscure an underlying neoplasm. False positive reports average 6 to 10%. Patient will receive a letter notifying them of these results.
== END ==
PROVIDERS: PCP Nurse Practitioner Family; Visit Provider Nurse Practitioner Family
DX: Z12.31 Encounter for screening mammogram for malignant neoplasm of breast (principal); R92.323 Mammographic fibroglandular density, bilateral breasts
CPT/HCPCS: 77063; 77067

== ENCOUNTER → 2023-08-11 10:35 | Outpatient (BNVA) | payer MEDICARE, SELFPAY | PROVIDERS: PCP Nurse Practitioner Family; Referring Provider Nurse Practitioner Family; Visit Provider Nurse Practitioner Adult Health | DX: G31.84 Mild cognitive impairment of uncertain or unknown etiology (principal) | CPT/HCPCS: 99215 ==

== ENCOUNTER → 2024-02-09 10:30 | Outpatient (BNVA) | payer MEDICARE, SELFPAY | PROVIDERS: PCP Nurse Practitioner Family; Visit Provider Nurse Practitioner Adult Health | DX: G31.84 Mild cognitive impairment of uncertain or unknown etiology (principal) | CPT/HCPCS: 99214 ==

== ENCOUNTER 2024-07-12 21:06 | Outpatient (REF) | payer MEDICARE, SELFPAY ==
[2024-07-12 21:37] LABS: ALT 24 U/L (14-59); AST 21 U/L (15-37); Alkaline Phosphatase 100 U/L (46-116); Anion Gap 8.2 mmol/L (3-11); BUN 12 mg/dL (7-18); Bilirubin, Total 0.39 mg/dL (0.2-1.0); CO2 31.8 mmol/L (21.0-32.0); CREATININE 0.8 mg/dL (0.55-1.02); Calcium 10.1 mg/dL (8.5-10.1); Calculated LDL 128 mg/dL (<100); Chloride 102 mmol/L (98-107); Cholesterol 251 mg/dL (<200); Estimated GFR 78.24 (mL/min/1.73m2); Glucose 78 mg/dL (74-106); HDL Cholesterol 72 mg/dL (40-60); Potassium 3.9 mmol/L (3.5-5.1); Sodium 142 mmol/L (136-145); TSH (W/Ref FT4) 35.55 uIU/mL (0.36-3.74); Total Protein 7.4 g/dL (6.4-8.2); Triglyceride 258 mg/dL (<150)
[2024-07-12 21:54] LABS: FREE T4 0.98 ng/dL (0.76-1.46)
== END 2024-07-12 21:07 | disposition home or self-care (01) ==
LOC: LBN 21:06
PROVIDERS: PCP Nurse Practitioner Family; Visit Provider Nurse Practitioner Family
DX: E78.2 Mixed hyperlipidemia (principal); E05.90 Thyrotoxicosis, unspecified without thyrotoxic crisis or storm; M79.605 Pain in left leg; Z78.0 Asymptomatic menopausal state
CPT/HCPCS: 80053; 80061; 84439; 84443

== ENCOUNTER 2024-08-01 03:06 | Outpatient (CLI) | payer MEDICARE, SELFPAY | END 2024-08-01 03:07 | disposition home or self-care (01) | LOC: LOS 03:06 | PROVIDERS: PCP Nurse Practitioner Family; Visit Provider Nurse Practitioner Family | DX: R73.03 Prediabetes (principal) | CPT/HCPCS: 36415; 83036 ==

== ENCOUNTER 2024-08-03 01:21 | Outpatient (CLI) | payer MEDICARE, SELFPAY ==
--- NOTE | 2024-08-03 07:00 | DI.DEXA_ITS ---
Exam(s) XR DEXA BONE DENSITY W/WO ADELINE EXAM: XR DEXA BONE DENSITY W/WO ADELINE CLINICAL HISTORY: screening for osteoporosis in postmenopausal state,z78.0 TECHNIQUE: COMPARISON: No exams were available for comparison FINDINGS: Lateral Spine Image: Unremarkable. No compression deformities identified. Left hip: Total T-Score: -0.4 Total Z-Score: 1.2 T- and Z-scores: There is no evidence of osteoporosis. There is osteopenia in the femoral neck with a T-score of -1.3. Lumbar Spine: Total T-Score: -0.6 Total Z-Score: 1.6 T- and Z-scores: There is no evidence of osteoporosis. There is osteopenia in the L1 vertebral body with a T-score of -1.9. IMPRESSION: No evidence of osteoporosis.
--- NOTE | 2024-08-03 10:58 | DI.RAD_ITS ---
Exam(s) XR KNEE LT 3V AP,LAT,MICHALE EXAM: XR KNEE LT 3V AP,LAT,MICHAEL CLINICAL HISTORY: fall 6 years ago,pain lt leg,m79.605. TECHNIQUE: 2D digital imaging was performed of the left knee. Three images were obtained. AP, late ral and PA tunnel views were obtained. COMPARISON: There are no priors for comparison. FINDINGS: BONES: No acute fracture is present. No bony destructive lesion is seen. There are enthesophytes at the anterior patella. JOINTS: There is marked narrowing of the patellofemoral joint. Osteophytes are seen in all 3 joint c ompartments. There is chondrocalcinosis in the femoral tibial joint. No joint effusion is seen. No loose body. SOFT TISSUE: Normal. IMPRESSION: There are marked degenerative changes seen in the left knee particularly the patellofemoral joint. DATA REPOSITORY: RADIATION DOSE DELIVERED:
== END 2024-08-03 01:41 ==
LOC: DI 01:21
PROVIDERS: PCP Nurse Practitioner Family; Visit Provider Nurse Practitioner Family
DX: M79.605 Pain in left leg (principal); Z78.0 Asymptomatic menopausal state; Z13.820 Encounter for screening for osteoporosis
CPT/HCPCS: 73562; 77080

== ENCOUNTER 2024-10-12 13:55 | Outpatient (REF) | payer MEDICARE, SELFPAY ==
[2024-10-12 21:19] LABS: TSH (W/Ref FT4) 0.27 uIU/mL (0.36-3.74)
[2024-10-12 21:35] LABS: FREE T4 1.38 ng/dL (0.76-1.46)
== END 2024-10-12 13:56 | disposition home or self-care (01) ==
LOC: LBN 13:55
PROVIDERS: PCP Nurse Practitioner Family; Visit Provider Nurse Practitioner Family
DX: E05.90 Thyrotoxicosis, unspecified without thyrotoxic crisis or storm (principal)
CPT/HCPCS: 84439; 84443